=== PATIENT | female | born 1990 | race Caucasian/White ===

== ENCOUNTER 2017-01-18 20:27 | Emergency (ER) | payer BC, OTHER ==
[~2017-01-18] VITALS: Ht 165.1 cm; Wt 65.0 kg
[~2017-01-18 20:27] MED LIST: Z.0.NO CURRENT MEDS
[2017-01-18 20:30] VITALS: BP 135/81; PULSE 105; RESP 18; TEMP 97.9; O2SAT 98
--- NOTE | 2017-01-18 21:00 | PD ---
Physical Exam Time Seen by Provider: 20:59 Narrative 26 y/o female here with laceration to distal L index finger. Cutting oranges when the knife slipped. Vital signs reviewed. Seen at triage desk. Awaiting bed placement. Data Data Last Documented VS Vital Signs Date Time Temp Pulse Resp B/P Pulse Ox O2 Delivery O2 Flow Rate FiO2 01/18/17 20:30 97.9 105 18 135/81 98 Room Air [facility] Medical Record Reviewed: Yes Supervised Visit with MARIA TERESA: Oscar Yao January 18, 2017 21:00
[2017-01-18] MEDS ORDERED: CEPH-460 PO (22:06)
[2017-01-18] MEDS ORDERED: IBUP-232 PO (22:06)
--- NOTE | 2017-01-18 22:06 | PD ---
HPI Chief Complaint: Laceration/Skin Injury Time Seen by Provider: 22:04 Travel History International Travel<30 days: No Contact w/Intl Traveler<30days: No Traveled to known affect area: No History of Present Illness HPI 26-year-old female with no significant medical history presents to the emergency department for evaluation. Patient states that she was cutting an orange for dinner when she slipped and cut off the distal tip of her left second digit. Patient reports 8 out of 10 pain at the site. Denies alterations in sensation. Denies any limitations in range of motion. States she is up-to-date on her tetanus vaccination. PFS Past Medical History Medical History: Denies Significant Hx Social History Alcohol Use: No Tobacco Use: No Substance Use: No Allergies-Medications (Allergen,Severity, Reaction): Coded Allergies: No Known Allergies (Unverified , 01/18/17) Reported Meds & Prescriptions Reported Meds & Active Scripts Active Ibuprofen 600 Mg Tab 600 Mg PO Q8HR PRN Keflex (Cephalexin) 500 Mg Cap 500 Mg PO Q6H 5 Days Reported No Current Meds (Miscellaneous Medication) Misc Review of Systems Except as stated in HPI: all other systems reviewed are Neg Physical Exam Narrative GENERAL: Well-nourished, well-developed female patient in no acute distress SKIN: Focused skin assessment warm/dry. 1 cm in diameter skin avulsion of the volar surface of the distal left second digit. HEAD: Normocephalic. EYES: No scleral icterus. No injection or drainage. NECK: Supple, trachea midline. No JVD or lymphadenopathy. CARDIOVASCULAR: Regular rate and rhythm without murmurs, gallops, or rubs. RESPIRATORY: Breath sounds equal bilaterally. No accessory muscle use. MUSCULOSKELETAL: No cyanosis, or edema. No limitations in range of motion. No alterations in sensation in the distal affected digit. Cap refill is within normal limits. BACK: Nontender without obvious deformity. No CVA tenderness. Data Data Last Documented VS Vital Signs Date Time Temp Pulse Resp B/P Pulse Ox O2 Delivery O2 Flow Rate FiO2 01/18/17 20:30 97.9 105 18 135/81 98 Room Air MDM Medical Decision Making Medical Screen Exam Complete: Yes Emergency Medical Condition: Yes Medical Record Reviewed: Yes Differential Diagnosis Skin avulsion versus abrasion versus laceration superficial versus deep Narrative Course 18 year-old female presents to the emergency department for evaluation. Patient was cutting an orange. Her slipping resulted in a skin avulsion of the distal aspect of the left second digit. Pain is controlled. The area is cleansed and dressing applied. Patient is counseled on care. She agrees to return immediately with any acute worsening of symptoms. Diagnosis Primary Impression: Avulsion of skin of finger without complication Qualified Code: S61.209A - Avulsion of skin of finger without complication, initial encounter Referrals: Primary Care Physician Patient Instructions: Acute Wound Care (ED), General Instructions, Skin Avulsion (ED) Additional Instructions: Elevate to reduce pain and bleeding Keep pressure dressing on for the next 12-24 hours Dressing changes 2 times a day Hold pressure for 20 minutes if bleeding persists Return immediately to the emergency department with any acute worsening of symptoms Med/Other Pt SpecificInfo: Prescription(s) given Scripts Ibuprofen 600 Mg Oba191 Mg PO Q8HR PRN (PAIN) #30 TAB Ref 0 Prov:Emily Cummings 01/18/17 Cephalexin (Keflex)500 Mg Rte105 Mg PO Q6H 5 Days Ref 0 Prov:Emily Cummings 01/18/17 Disposition: 01 DISCHARGE HOME Condition: Stable Emily Cummings January 18, 2017 22:06
== END 2017-01-18 22:22 | disposition home or self-care (01) ==
LOC: NEPK 20:27
DX: S61.211A Laceration without foreign body of left index finger without damage to nail, initial encounter (principal); W26.0XXA Contact with knife, initial encounter; Y93.G1 Activity, food preparation and clean up; Y92.000 Kitchen of unspecified non-institutional (private) residence as the place of occurrence of the external cause; Y99.8 Other external cause status
CPT/HCPCS: 99282